=== PATIENT | female | born 1940 | race Caucasian/White ===

== ENCOUNTER 2019-12-10 11:47 | Emergency (ER) | payer MEDICARE, BC ==
[~2019-12-10] VITALS: Ht 162.6 cm; Wt 63.5 kg
[2019-12-10 11:58] VITALS: BP 177/126
== END 2019-12-10 13:08 | disposition home or self-care (01) ==
LOC: ER 11:50
DX: T78.40XA Allergy, unspecified, initial encounter (principal); M54.5 Low back pain; G43.909 Migraine, unspecified, not intractable, without status migrainosus; M81.0 Age-related osteoporosis without current pathological fracture; X58.XXXA Exposure to other specified factors, initial encounter